=== PATIENT | male | born 1945 | race Caucasian/White ===

== ENCOUNTER 2025-01-16 15:50 | Emergency (ER) | payer OTHER ==
[~2025-01-16] VITALS: Ht 172.7 cm; Wt 63.0 kg
== END 2025-01-16 18:21 | disposition home or self-care (01) ==
LOC: ER 15:50
DX: S00.03XA Contusion of scalp, initial encounter (principal); M54.2 Cervicalgia; Z88.8 Allergy status to other drugs, medicaments and biological substances; Z59.89 Other problems related to housing and economic circumstances; W18.30XA Fall on same level, unspecified, initial encounter
CPT/HCPCS: 70450; 72125; 93005; 93010; 99284-25